=== PATIENT | female | born 1960 | race Caucasian/White ===

== ENCOUNTER → 2018-02-15 | Outpatient (CLI) | payer BC, OTHER ==
[2015-09-15 14:45] VITALS: BP 123/79
[~2018-02-15] MED LIST: ALPR0.5T6 PO; ESTR1TAB5 PO; LEVO50TA PO; METO-239 PO; MULT1TAB52 PO; Mouthwash PO; PANT40TA5 PO; SUCR1TAB35 PO
--- NOTE | 2018-02-15 09:33 | RAD ---
Exam: Right Upper Quadrant Ultrasound 02/15/2018 8:10 AM Indication: Right upper quadrant pain x3 months. History of diarrhea. Nausea.; Technique: Multiple realtime grayscale sonographic images were obtained over the abdomen. Static images were submitted for interpretation. Comparisons: None Findings: The pancreas is partially visualized. Visualized portions of the pancreas are unremarkable. The gallbladder is unremarkable without evidence of wall thickening, stones, or sludge. Sonographic Ag sign negative. Liver is unremarkable in appearance measuring approximately 16.6 cm longitudinally. No focal hepatic lesions are seen. Common bile duct is nondilated measuring 3 use millimeters in diameter. The right kidney is 9.7 cm in length. There is a small cyst within the inferior right kidney measuring 1.4 cm in diameter. Right kidney is otherwise grossly unremarkable in appearance. Visualized IVC is unremarkable. IMPRESSION: 1. No evidence of acute intra-abdominal abnormality 2. 1.4 cm cyst within the inferior right kidney Impression: Electronically signed by: Naveen Lui MD (02/15/2018 9:30 AM) [id number]
--- NOTE | 2018-02-16 09:40 | RAD ---
DATE: 02/15/2018 EXAM: MAMMO MAURISIO SCREENING BILATERAL HISTORY: Routine screening COMPARISON: 07/22/2015 This study was interpreted with the benefit of Computerized Aided Detection (CAD). Breast Density: HETERO The breast parenchyma is heterogenously dense, which could reduce sensitivity of mammography. Breast parenchyma level C. FINDINGS: 2-D and 3-D tomosynthesis imaging was performed in CC and MLO projections. The fibroglandular tissues multinodular in character. No spiculated mass or architectural distortion is evident. Benign type calcifications are present. No suspicious microcalcifications have developed. IMPRESSION: Stable mammograms without evidence of malignancy. BI-RADS CATEGORY: 2 BENIGN FINDING(S) RECOMMENDED FOLLOW-UP: 12M 12 MONTH FOLLOW-UP PQRS compliance statement: Patient information was entered into a reminder system with a target due date for the next mammogram. Mammography is a sensitive method for finding small breast cancers, but it does not detect them all and is not a substitute for careful clinical examination. A negative mammogram does not negate a clinically suspicious finding and should not result in delay in biopsying a clinically suspicious abnormality. "Our facility is accredited by the [employer] Mammography Program."
== END | disposition home or self-care (01) ==
LOC: US 07:49
PROVIDERS: ATTEND Physician Assistant
DX: Z12.31 Encounter for screening mammogram for malignant neoplasm of breast (principal); N28.1 Cyst of kidney, acquired
CPT/HCPCS: 76705; 77063; 77067

== ENCOUNTER 2018-11-17 09:59 | Emergency (ER) | payer BC ==
[~2018-11-17] VITALS: Ht 157.5 cm; Wt 71.2 kg
[2018-11-17] MEDS ORDERED: METOCLOPRAMIDE HCL 10 MG/2 ML VIAL. IV ONE (10:15)
[2018-11-17] MEDS ORDERED: diphenhydrAMINE 50 MG/ML VIAL IVP ONE (10:15)
[2018-11-17] MEDS ORDERED: KETOROLAC 30 MG/ML VIAL. IV ONE (10:15)
--- NOTE | 2018-11-17 10:29 | RAD ---
RS Compliance Statement: One or more of the following individualized dose reduction techniques were utilized for this examination: 1. Automated exposure control 2. Adjustment of the mA and/or kV according to patient size 3. Use of iterative reconstruction technique CT head without contrast 11/17/2018 10:09 AM INDICATION: Severe headache radiating down the left side of the head into the neck. COMPARISON: None available TECHNIQUE: Multiple axial CT images of the head were obtained from skull base through the vertex without intravenous contrast. FINDINGS: Head: Ventricles, sulci and basal cisterns are within normal limits. There is no hydrocephalus. Hernandez-white matter differentiation is normal. There is no acute intracranial hemorrhage. There is no mass, mass effect or midline shift. Posterior fossa is normal in appearance. Visualized portions of the orbits are normal. Paranasal sinuses are well aerated. Mastoid air cells are well aerated. Scalp and calvaria are normal. IMPRESSION: No acute intracranial hemorrhage. Electronically signed by: Monique Beltran MD (11/17/2018 10:26 AM) [facility]
[2018-11-17] MEDS ORDERED: IV NORMAL SALINE 1,000ML 1,000 ML IV ONE (10:30)
[2018-11-17] MEDS ORDERED: PRED20TA PO (10:56)
[2018-11-17] MEDS ORDERED: METO10TA81 PO (10:56)
--- NOTE | 2018-11-17 10:56 | PHYS DOC ---
Past History Past Medical History: Anxiety, GERD, Hypertension, Hypothyroid Past Surgical History: No Surgical History Alcohol Use: Occasionally Drug Use: None Adult General Chief Complaint Chief Complaint: HEADACHE HPI HPI 58-year-old female presents from her primary care physician's office with left- sided headache. She states this started yesterday. She denies any lateralizing neurologic weakness. She denies any fever or neck pain. She states the pain is sharp in nature and comes and goes. She states she currently is having mild to moderate symptoms. She denies any visual changes. She denies photophobia and phonophobia[] Review of Systems Review of Systems Constitutional: Denies fever or chills [] Eyes: Denies change in visual acuity, redness, or eye pain [] HENT: Denies nasal congestion or sore throat [] Respiratory: Denies cough or shortness of breath [] Cardiovascular: No additional information not addressed in HPI [] GI: Denies abdominal pain, nausea, vomiting, bloody stools or diarrhea [] : Denies dysuria or hematuria [] Musculoskeletal: Denies back pain or joint pain [] Integument: Denies rash or skin lesions [] Neurologic: Per history of present illness[] Endocrine: Denies polyuria or polydipsia [] All other systems were reviewed and found to be within normal limits, except as documented in this note. Current Medications Current Medications Current Medications Medications (Trade) Dose Ordered Sig/Colin Start Time Stop Time Status Last Admin Dose Admin Diphenhydramine HCl (Benadryl) 25 mg 1X ONCE 11/17/18 10:15 11/17/18 10:26 DC 11/17/18 10:33 25 MG Ketorolac Tromethamine (Toradol 30mg Vial) 30 mg 1X ONCE 11/17/18 10:15 11/17/18 10:26 DC 11/17/18 10:32 30 MG Metoclopramide HCl (Reglan Vial) 10 mg 1X ONCE 11/17/18 10:15 11/17/18 10:26 DC 11/17/18 10:34 10 MG Sodium Chloride 1,000 ml @ 1,000 mls/hr 1X ONCE 11/17/18 10:30 11/17/18 11:29 11/17/18 10:26 1,000 MLS/HR Allergies Allergies Allergies Coded Allergies Type Severity Reaction Last Updated Verified Sulfa (Sulfonamide Antibiotics) Allergy Unknown Hives 09/14/15 Yes Physical Exam Physical Exam Constitutional: Well developed, well nourished, mild distress, non-toxic a ppearance. [] HENT: Normocephalic, atraumatic, bilateral external ears normal, oropharynx moist, no oral exudates, nose normal. [] Eyes: PERRLA, EOMI, conjunctiva normal, no discharge. [] Neck: Normal range of motion, no tenderness, supple, no stridor. [] Cardiovascular:Heart rate regular rhythm, no murmur [] Lungs & Thorax: Bilateral breath sounds clear to auscultation [] Abdomen: Bowel sounds normal, soft, no tenderness, no masses, no pulsatile masses. [] Skin: Warm, dry, no erythema, no rash. [] Back: No tenderness, no CVA tenderness. [] Extremities: No tenderness, no cyanosis, no clubbing, ROM intact, no edema. [] Neurologic: Alert and oriented X 3, normal motor function, normal sensory function, no focal deficits noted. [] Psychologic: Anxious[] Current Patient Data Vital Signs Vital Signs Date Time Temp Pulse Resp B/P (MAP) Pulse Ox O2 Delivery O2 Flow Rate FiO2 11/17/18 10:37 87 20 135/95 (108) 100 Room Air 11/17/18 10:05 97.8 EKG EKG [] Radiology/Procedures Radiology/Procedures [] Impressions: REASON: Severe headache radiating down left side of head into neck PROCEDURE: CT HEAD WO CONTRAST PQRS Compliance Statement: One or more of the following individualized dose reduction techniques were utilized for this examination: 1. Automated exposure control 2. Adjustment of the mA and/or kV according to patient size 3. Use of iterative reconstruction technique CT head without contrast 11/17/2018 10:09 AM INDICATION: Severe headache radiating down the left side of the head into the neck. COMPARISON: None available TECHNIQUE: Multiple axial CT images of the head were obtained from skull base through the vertex without intravenous contrast. FINDINGS: Head: Ventricles, sulci and basal cisterns are within normal limits. There is no hydrocephalus. Hernandez-white matter differentiation is normal. There is no acute intracranial hemorrhage. There is no mass, mass effect or midline shift. Posterior fossa is normal in appearance. Visualized portions of the orbits are normal. Paranasal sinuses are well aerated. Mastoid air cells are well aerated. Scalp and calvaria are normal. IMPRESSION: No acute intracranial hemorrhage. Course & Med Decision Making Course & Med Decision Making Pertinent Labs and Imaging studies reviewed. (See chart for details) [ED course: Evaluation reveals a 58-year-old female with a headache. She was given Toradol, Reglan and Benadryl during her stay in the department. After the headache she states the pain was gone everywhere except her temporal region where the pain felt sharp. On palpation of that area she was non-tender however the concern for non-visual loss temporal arteritis exists so we'll go ahead and treat her with some prednisone as an outpatient. I will have her follow with her primary care physician on Monday or Monday to reassess her symptoms.] Dragon Disclaimer Dragon Disclaimer This electronic medical record was generated, in whole or in part, using a voice recognition dictation system. Departure Departure: Impression: Primary Impression: Headache Disposition: HOME, SELF-CARE Condition: IMPROVED Referrals: SOLEDAD GOODWIN MD (PCP) Patient Instructions: General Headache Without Cause, Temporal Arteritis Additional Instructions: Take medication as directed. Return to the emergency department with any new or concerning symptoms. It is very important that you follow with her primary care physician on Monday or Monday for recheck. Scripts Metoclopramide Hcl (REGLAN) 10 Mg Tablet 10 MG PO PRN Q8HRS PRN for HEADACHE, #30 TAB 3 Refills Take 25 mg of Benadryl with each dose Prov: LUIS EL DO 11/17/18 Prednisone (PREDNISONE) 20 Mg Tablet 1 TAB PO TID for headache, #21 TAB Prov: LUIS EL DO 11/17/18 Problem Qualifiers Primary Impression: Headache Headache type: unspecified Headache chronicity pattern: acute headache Intractability: not intractable Qualified Codes: R51 - Headache LUIS EL DO Nov 17, 2018 10:56
[2018-11-17] MEDS ORDERED: predniSONE 20 MG TABLET PO ONE (11:00)
[2018-11-17 11:06] VITALS: BP 107/61
== END 2018-11-17 11:15 | disposition home or self-care (01) ==
LOC: ER 09:59
DX: R51 Headache (principal); F41.9 Anxiety disorder, unspecified; K21.9 Gastro-esophageal reflux disease without esophagitis; I10 Essential (primary) hypertension; E03.9 Hypothyroidism, unspecified; Z88.2 Allergy status to sulfonamides
CPT/HCPCS: 70450; 96374; 96375; 99284; J1200; J1885; J2765; J7512; J7030

== ENCOUNTER 2019-04-01 13:13 | Emergency (ER) | payer OTHER, BC ==
[~2019-04-01] VITALS: Ht 157.5 cm; Wt 71.2 kg
[~2019-04-01 13:13] MED LIST changes: +METO10TA81 PO; +PRED20TA PO
--- NOTE | 2019-04-01 13:51 | RAD ---
CHEST PA LATERAL History: Back pain Comparison: September 14, 2015 Findings: 2 views of the chest are submitted. There is no infiltrate, pneumothorax, or effusion. Pericardial cardiac silhouette is within normal limits in size. There is mild thoracic dextroscoliosis. Impression: 1. There is no radiographic evidence of acute cardiopulmonary disease. Electronically signed by: Chace Molina MD (04/01/2019 1:48 PM) [id number]
[2019-04-01] MEDS ORDERED: CYCL5TAB PO (14:06)
[2019-04-01] MEDS ORDERED: TRAM50TA PO (14:06)
[2019-04-01 14:17] VITALS: BP 141/85
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
== END 2019-04-01 14:19 | disposition home or self-care (01) ==
LOC: ER 13:13
DX: S23.3XXA Sprain of ligaments of thoracic spine, initial encounter (principal); F41.9 Anxiety disorder, unspecified; K21.9 Gastro-esophageal reflux disease without esophagitis; I10 Essential (primary) hypertension; E03.9 Hypothyroidism, unspecified; Z87.440 Personal history of urinary (tract) infections; Z88.2 Allergy status to sulfonamides; V89.2XXA Person injured in unspecified motor-vehicle accident, traffic, initial encounter; Y93.89 Activity, other specified; Y92.89 Other specified places as the place of occurrence of the external cause; Y99.8 Other external cause status
CPT/HCPCS: 71046; 99284

== ENCOUNTER 2020-11-24 20:41 | Emergency (ER) | payer BC, OTHER ==
[~2020-11-24] VITALS: Ht 157.5 cm; Wt 71.7 kg
[~2020-11-24 20:41] MED LIST changes: +CYCL5TAB PO; +MULT-445 PO; -MULT1TAB52 PO; -PANT40TA5 PO; +PANT40TA6 PO; +TRAM50TA PO
[2020-11-24 20:55] VITALS: BP 136/102
--- NOTE | 2020-11-24 21:04 | PHYS DOC ---
Past History Past Medical History: Anxiety, GERD, Hypertension, Hypothyroid, UTI (LOUISE BOWSER APRN) Past Surgical History: Other Additional Past Surgical Histo: ABDOMINAL ABLATION (LOUISE BOWSER APRN) Alcohol Use: Occasionally Drug Use: None (LOUISE BOWSER APRN) General Adult EDM: Chief Complaint: UPPER EXTREMITY PAIN HPI: HPI: Patient is a 60-year-old female who presents to the ER today for left arm pain that radiates into her neck. She reports symptoms started 45 minutes ago. With the onset of this pain she was nauseous. She rates her pain 10 out of 10. No treatment prior to arrival. No injury. Patient reports taking Xanax prior to arrival and that did improve some of her symptoms. Patient denies any chest pain, shortness of breath, vomiting, decreased range of motion or decreased sensation in her extremity. Patient has a history of hypertension, hypothyroid, and anxiety. Patient reports taking her blood pressure medications daily. (LOUISE BOWSER APRN) Review of Systems: Review of Systems: 14 body systems of the review of systems have been reviewed. See HPI for pertinent positive and negative responses, otherwise all other systems are negative, nonpertinent or noncontributory (LOUISE BOWSER APRN) Allergies: Allergies: Allergies Coded Allergies Type Severity Reaction Last Updated Verified Sulfa (Sulfonamide Antibiotics) Allergy Unknown Hives 09/14/15 Yes (LOUISE BOWSER APRN) Physical Exam: PE: Constitutional: Well developed, well nourished, no acute distress, non-toxic appearance. [] HENT: Normocephalic, atraumatic, bilateral external ears normal, oropharynx moist, no oral exudates, nose normal. [] Eyes: PERRL, EOMI, conjunctiva normal, no discharge. [] Neck: Normal range of motion, no stridor, left-sided trapezius tenderness with palpation Cardiovascular:Heart rate regular rhythm, no murmur [] Lungs & Thorax: Bilateral breath sounds clear to auscultation [] Abdomen: Bowel sounds normal, soft, no tenderness, no masses, no pulsatile masses. [] Skin: Warm, dry, no erythema, no rash. [] Back: Normal range of motion Extremities: No tenderness, no cyanosis, no clubbing, ROM intact, no edema. [] Neurologic: Alert and oriented X 3, normal motor function, normal sensory function, no focal deficits noted. [] Psychologic: Affect normal, judgement normal, mood normal. [] (LOUISE BOWSER APRN) Current Patient Data: Labs: Laboratory Tests Test 11/24/20 21:23 White Blood Count 8.0 x10^3/uL Red Blood Count 4.47 x10^6/uL Hemoglobin 13.5 g/dL Hematocrit 40.4 % Mean Corpuscular Volume 91 fL Mean Corpuscular Hemoglobin 30 pg Mean Corpuscular Hemoglobin Concent 33 g/dL Red Cell Distribution Width 13.2 % Platelet Count 357 x10^3/uL Neutrophils (%) (Auto) 50 % Lymphocytes (%) (Auto) 39 % Monocytes (%) (Auto) 9 % Eosinophils (%) (Auto) 1 % Basophils (%) (Auto) 1 % Neutrophils # (Auto) 4.0 x10^3uL Lymphocytes # (Auto) 3.1 x10^3/uL Monocytes # (Auto) 0.7 x10^3/uL Eosinophils # (Auto) 0.1 x10^3/uL Basophils # (Auto) 0.1 x10^3/uL Sodium Level 143 mmol/L Potassium Level 4.4 mmol/L Chloride Level 109 mmol/L Carbon Dioxide Level 29 mmol/L Anion Gap 5 Blood Urea Nitrogen 15 mg/dL Creatinine 0.9 mg/dL Estimated GFR (Cockcroft-Gault) 64.3 BUN/Creatinine Ratio 17 Glucose Level 86 mg/dL Calcium Level 9.0 mg/dL Total Bilirubin 0.4 mg/dL Aspartate Amino Transf (AST/SGOT) 17 U/L Alanine Aminotransferase (ALT/SGPT) 30 U/L Alkaline Phosphatase 76 U/L Troponin I Quantitative < 0.017 ng/mL Total Protein 6.9 g/dL Albumin 3.7 g/dL Albumin/Globulin Ratio 1.2 Current Medications Medications (Trade) Dose Ordered Sig/Colin Route PRN Reason Start Time Stop Time Status Last Admin Dose Admin Ibuprofen (Motrin) 600 mg 1X ONCE PO 11/24/20 21:00 11/24/20 21:02 DC 11/24/20 21:19 (LOUISE BOWSER APRN) EKG: EKG: KG performed by ER staff at 2109 shows sinus rhythm, no STEMI [] (LOUISE BOWSER APRN) Radiology/Procedures: Radiology/Procedures: PROCEDURE: CHEST AP ONLY Exam: Chest one view INDICATION: Arm, neck pain, nausea TECHNIQUE: Frontal view of the chest Comparisons: 04/01/2019 FINDINGS: The cardiomediastinal silhouette and pulmonary vessels are within normal limits. The lung and pleural spaces are clear. IMPRESSION: No acute cardiopulmonary process. Electronically signed by: Laury Hudson MD (11/24/2020 9:37 PM) [facility] DICTATED AND SIGNED BY: LAURY HUDSON MD DATE: 11/24/202135 CC: SOLEDAD GOODWIN MD; EMERGENCY,DEPARTMENT; LOUISE BOWSER APRN ~MTH0 0 [] (LOUISE BOWSER APRN) Heart Score: C/O Chest Pain: No Risk Factors: Risk Factors: DM, Current or recent (<one month) smoker, HTN, HLP, family history of CAD, obesity. Risk Scores: Score 0 - 3: 2.5% MACE over next 6 weeks - Discharge Home Score 4 - 6: 20.3% MACE over next 6 weeks - Admit for Clinical Observation Score 7 - 10: 72.7% MACE over next 6 weeks - Early Invasive Strategies (LOUISE BOWSER APRN) Course & Med Decision Making: Course & Med Decision Making Pertinent Labs and Imaging studies reviewed. (See chart for details) Patient is a 60-year-old female being seen in the ER for left arm pain that radiates into her neck. Patient was evaluated in the ER with blood work, EKG, and chest x-ray to rule out atypical ACS presentation. Patient was treated in the ER with anti-inflammatory medication. Work-up in the ER was unremarkable. Patient's vital signs are stable. It is likely that patient's pain is musculoskeletal and advised to take anti-inflammatory medications at home. Patient advised to follow-up with her primary care provider. I discussed with patient all findings and diagnostic testing as well as the need to follow-up with PCP for further evaluation and treatment or return to the ER if any new or worsening symptoms. Strict return precautions were also discussed at length. Patient voiced understanding and agreement with the plan. Patient is hemodynamically stable at the time of disposition. (LOUISE BOWSER APRN) Dragon Disclaimer: Dragon Disclaimer: This electronic medical record was generated, in whole or in part, using a voice recognition dictation system. (LOUISE BOWSER APRN) Attending Co-Sign The patient was seen and interviewed as well as examined at the bedside. The chart was reviewed. The case was discussed. Agree with the plan of care. (YARELI PHILLIPS DO) Departure Departure: Impression: Primary Impression: Muscle spasm Disposition: HOME / SELF CARE / HOMELESS Condition: GOOD Referrals: SOLEDAD GOODWIN MD (PCP) Patient Instructions: Muscle Strain Additional Instructions: You were seen in the ER today for left shoulder/neck and arm pain. As we discussed, this is a common presentation of atypical chest pain in females. Due to this, blood work and an EKG was obtained. Your work-up in the ER was unremarkable. Your vital signs are stable and your physical exam was reassuring. It is likely that you have a musculoskeletal cause for the symptoms. Please take anti-inflammatory medications like ibuprofen/naproxen. You were treated in the ER with anti-inflammatory medication. Please follow-up with your primary care provider tomorrow regarding your ER visit today. If you develop chest pain, shortness of breath, arm numbness or tingling, palpitations, decreased sensation in your extremity, decreased range of motion, dizziness please return to the ER immediately. EMERGENCY DEPARTMENT GENERAL DISCHARGE INSTRUCTIONS Thank you for coming to [facility] (ED) today and trusting us with you care. We trust that you had a positivie experience in our Emergency Department. If you wish to speak to the department management, you may call the director at [phone]. YOUR FOLLOW UP INSTRUCTIONS ARE FOLLOWS: 1. Do you have a private Doctor? If you do not have a private doctor, please ask for a resource list of physicians or clinics that may be able to assist you with follow up care. 2. The Emergency Physician has interpreted your x-rays. The X-Ray specialist will also review them. If there is a change in the findings, you will be notified in 48 hours when at all possible. 3. A lab test or culture has been done, your results will be reviewed and you will be notified if you need a change in treatment. ADDITIONAL INSTRUCTIONS AND INFORMATION: 1. Your care today has been supervised by a physician who is specially trained in emergency care. Many problems require more than one evaluation for a complete diagnosis and treatment. We recommend that you schedule your follow up appointment as recommended to ensure complete treatment of you illness or injury. If you are unable to obtain follow up care and continue to have a problem, or if your condition worsens, we recommend that you return to the ED. 2. We are not able to safely determine your condition over the phone nor are we able to give sound medical advice over the phone. For these safety reasons, if you call for medical advice we will ask you to come to the ED for further evaluation. 3. If you have any questions regarding these discharge instructions please call the ED at [phone]. SAFETY INFORMATION: In the interest of safety, wellness, and injury prevention; we encourage you to wear your sealbelt, if you smoke; quite smoking, and we encourage family to use a protective helmet for bicycling and other sporting events that present an increased risk for head injury. IF YOUR SYMPTOMS WORSEN OR NEW SYMPTOMS DEVELOP, OR YOU HAVE CONCERNS ABOUT YOUR CONDITION; OR IF YOUR CONDITION WORSENS WHILE YOU ARE WAITING FOR YOUR FOLLOW UP APPOINTMENT; EITHER CONTACT YOUR PRIMARY CARE DOCTOR, THE PHYSICIAN WHOSE NAME AND NUMBER YOU WERE GIVEN, OR RETURN TO THE ED IMMEDIATELY. LOUISE BOWSER APRN Nov 24, 2020 21:03 YARELI PHILLIPS DO Nov 26, 2020 03:29
[2020-11-24] MEDS: IBUPROFEN 600 MG TABLET. PO ONE (21:19)
[2020-11-24 21:39] LABS: BASO # 0.1 x10^3/uL (0.0-0.2); BASO % 1 % (0-3); EOS # 0.1 x10^3/uL (0.0-0.7); EOS % 1 % (0-3); HEMATOCRIT 40.4 % (36.0-47.0); HEMOGLOBIN 13.5 g/dL (12.0-15.5); LYMPH # 3.1 x10^3/uL (1.0-4.8); LYMPH % 39 % (24-48); MEAN CORPUSCULAR HEMOGLOBIN 30 pg (25-35); MEAN CORPUSCULAR HGB CONC 33 g/dL (31-37); MEAN CORPUSCULAR VOLUME 91 fL (79-100); MONO # 0.7 x10^3/uL (0.0-1.1); MONO % 9 % (0-9); NEUT % 50 % (31-73); PLATELET COUNT 357 x10^3/uL (140-400); RED BLOOD COUNT 4.47 x10^6/uL (3.50-5.40); RED CELL DISTRIBUTION WIDTH 13.2 % (11.5-14.5)
--- NOTE | 2020-11-24 21:40 | RAD ---
Exam: Chest one view INDICATION: Arm, neck pain, nausea TECHNIQUE: Frontal view of the chest Comparisons: 04/01/2019 FINDINGS: The cardiomediastinal silhouette and pulmonary vessels are within normal limits. The lung and pleural spaces are clear. IMPRESSION: No acute cardiopulmonary process. Electronically signed by: Laury Hopkins MD (11/24/2020 9:37 PM) [facility]
[2020-11-24 21:48] LABS: CREATININE 0.9 mg/dL (0.6-1.0); GFR 64.3; POTASSIUM 4.4 mmol/L (3.5-5.1)
[2020-11-24 21:53] LABS: ALBUMIN 3.7 g/dL (3.4-5.0); ALBUMIN/GLOBULIN RATIO 1.2 (1.0-1.7); TOTAL BILIRUBIN 0.4 mg/dL (0.2-1.0); TOTAL PROTEIN 6.9 g/dL (6.4-8.2)
--- NOTE | 2020-11-25 06:22 | EKG ---
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
== END 2020-11-24 22:10 | disposition home or self-care (01) ==
LOC: ER 20:41
DX: M62.838 Other muscle spasm (principal); M79.602 Pain in left arm; F41.9 Anxiety disorder, unspecified; K21.9 Gastro-esophageal reflux disease without esophagitis; I10 Essential (primary) hypertension; E03.9 Hypothyroidism, unspecified; Z87.440 Personal history of urinary (tract) infections; Z88.2 Allergy status to sulfonamides
CPT/HCPCS: 36415; 71045; 80053; 84484; 85025; 93005; 99285